=== PATIENT | female | born 1960 | race Caucasian/White ===

== ENCOUNTER 2017-08-29 11:35 | Inpatient (IN) | payer MEDICARE, OTHER ==
[~2017-08-29 11:35] MED LIST: ETOMIDATE 20 MG INJ
[2017-08-29] MEDS: ETOMIDATE 20 MG INJ IV (12:35)
[2017-08-29] MEDS: ROCURONIUM 50 MG INJ IV (12:36)
[2017-08-29] MEDS: PROPOFOL 100 ML IV ×3 (12:47→22:00)
[2017-08-29 12:51] LABS: ADD MAN DIFF? NO
[2017-08-29 12:53] LABS: AADO2 Arterial 378.8 mmHg (7.0-24.0); Allen Test ACCEPTAB; Arterial Base Excess -0.6 mmol/L (-3.0-3); Arterial Blood Gas Oxygen Sat 91.1 mmHG (95.0-98.0); Arterial COHb 0.3 % (0.0-3.0); Arterial Fraction of Oxyhgb 90.6 % (93.0-99.0); Arterial HCO3 25.3 mmol/L (22.0-26.0); Arterial MetHb 0.3 % (0.0-1.5); Arterial Total Hemglobin 10.4 g/dl (12.0-18.0); Arterial pCO2 46.9 mmhg (35-45); MODE VENT - AC; Site Right Radial
[2017-08-29 12:59] LABS: WHITE BLOOD COUNT 12.3 10^3/ul (4.8-10.8)
[2017-08-29 12:59] LABS: ABNORMAL IP MESSAGE 1; BASOPHIL # 0.1 10^3/ul (0.0-0.1); BASOPHILS % 0.5 % (0.0-2.0); EOSINOPHILS # 0.3 10^3/ul (0.0-0.5); EOSINOPHILS % 2.1 % (0.0-7.0); HEMATOCRIT 28.2 % (37.0-47.0); HEMOGLOBIN 9.1 g/dl (12.0-16.0); LYMPHOCYTES # 4.4 10^3/ul (0.8-2.9); LYMPHOCYTES % 35.6 % (15.0-51.0); MEAN CORPUSCULAR HEMOGLOBIN 31.5 pg (29.0-33.0); MEAN CORPUSCULAR HGB CONC 32.3 g/dl (32.0-37.0); MEAN CORPUSCULAR VOLUME 97.6 fl (82.0-101.0); MEAN PLATELET VOLUME 12.6 fl (7.4-10.4); MONOCYTE # 0.7 10^3/ul (0.3-0.9); MONOCYTES % 5.9 % (0.0-11.0); NEUTROPHIL # 6.8 10^3/ul (1.6-7.5); NEUTROPHILS % 55.4 % (39.0-77.0); RED BLOOD COUNT 2.89 10^6/ul (4.20-5.40); RED CELL DISTRIBUTION WIDTH 17.1 % (11.5-14.5)
[2017-08-29 13:01] LABS: POSITIVE DIFF @See below
[2017-08-29 13:15] LABS: PROTIME 13.3 Sec (11.9-14.9)
[2017-08-29 13:16] LABS: PARTIAL THROMBOPLASTIN TIME 32.6 Sec (25.0-35.0)
[2017-08-29 13:19] LABS: ALANINE AMINOTRANSFERASE 29 IU/L (13-69); ALBUMIN 4.2 g/dl (3.3-4.9); ALBUMIN/GLOBULIN RATIO 1.35; ALKALINE PHOSPHATASE 84 IU/L (42-121); ANION GAP 32 (8-16); ASPARTATE AMINO TRANSFERASE 41 IU/L (15-46); BLOOD UREA NITROGEN 79 mg/dl (7-20); CALCIUM 6.8 mg/dl (8.4-10.2); CARBON DIOXIDE 20 mmol/L (21-31); CHLORIDE 93 mmol/L (97-110); CREATININE 10.74 mg/dl (0.44-1.00); GLUCOSE 167 mg/dl (70-220); POTASSIUM 4.9 mmol/L (3.5-5.1); SODIUM 140 mmol/L (135-144); TOTAL PROTEIN 7.3 g/dl (6.1-8.1)
[2017-08-29 13:33] LABS: PLATELET COUNT 180 10^3/UL (140-415)
[2017-08-29 13:44] LABS: B-TYPE NATRIURETIC PEPTIDE 151000 PG/ML (0-125)
[2017-08-29] MEDS ORDERED: LORAZEPAM 2 MG INJ IV (15:30)
[2017-08-29] MEDS ORDERED: ONDANSETRON 4 MG INJ IV (15:30)
[2017-08-29] MEDS ORDERED: VANCOMYCIN IV PER PHARMACY XX (15:30)
[2017-08-29] MEDS: CEFEPIME 1GM/50 ML (PMX) 50 ML IVPB (16:20)
[2017-08-29] MEDS: VANCOMYCIN 1 GM in 250 ML IVPB (17:58)
[2017-08-29] MEDS: DOCUSATE SODIUM 100 MG CAP PO (21:00)
[2017-08-29] MEDS: FAMOTIDINE 20 MG INJ IV (21:59)
[2017-08-29 23:55] LABS: CREATINE KINASE 55 IU/L (23-200)
[2017-08-30 00:09] LABS: CK INDEX 2.8; CK-MB 1.54 ng/ml (0.0-2.4)
[2017-08-30 00:19] LABS: TROPONIN-I 0.304 ng/ml (0.00-0.12)
[2017-08-30 04:39] LABS: ADD MAN DIFF? NO
[2017-08-30 04:44] LABS: WHITE BLOOD COUNT 6.4 10^3/ul (4.8-10.8)
[2017-08-30 04:44] LABS: ABNORMAL IP MESSAGE 1; BASOPHILS % 0.5 % (0.0-2.0); EOSINOPHILS # 0.2 10^3/ul (0.0-0.5); EOSINOPHILS % 2.7 % (0.0-7.0); HEMATOCRIT 27.8 % (37.0-47.0); HEMOGLOBIN 9.4 g/dl (12.0-16.0); LYMPHOCYTES # 1.7 10^3/ul (0.8-2.9); LYMPHOCYTES % 26.8 % (15.0-51.0); MEAN CORPUSCULAR HEMOGLOBIN 30.8 pg (29.0-33.0); MEAN CORPUSCULAR HGB CONC 33.8 g/dl (32.0-37.0); MEAN CORPUSCULAR VOLUME 91.1 fl (82.0-101.0); MEAN PLATELET VOLUME 11.1 fl (7.4-10.4); MONOCYTE # 0.6 10^3/ul (0.3-0.9); MONOCYTES % 9.4 % (0.0-11.0); NEUTROPHIL # 3.8 10^3/ul (1.6-7.5); NEUTROPHILS % 60.1 % (39.0-77.0); PLATELET COUNT 99 10^3/UL (140-415); RED BLOOD COUNT 3.05 10^6/ul (4.20-5.40); RED CELL DISTRIBUTION WIDTH 16.9 % (11.5-14.5)
[2017-08-30 04:59] LABS: POSITIVE DIFF @See below
[2017-08-30] MEDS: PROPOFOL 100 ML IV ×4 (05:28→23:52)
[2017-08-30 05:32] LABS: CREATINE KINASE 59 IU/L (23-200)
[2017-08-30 05:35] LABS: ALANINE AMINOTRANSFERASE 34 IU/L (13-69); ALBUMIN 3.7 g/dl (3.3-4.9); ALKALINE PHOSPHATASE 80 IU/L (42-121); ASPARTATE AMINO TRANSFERASE 42 IU/L (15-46); BILIRUBIN,INDIRECT 0.1 mg/dl (0-1.1); BILIRUBIN,TOTAL 0.1 mg/dl (0.2-1.3); CHOL/HDL RATIO 4.7 RATIO; CHOLESTEROL 209 mg/dl (100-200); HDL CHOLESTEROL 44 mg/dl (35-98); LDL CHOLESTEROL,CALCULATED 122 mg/dl; TOTAL PROTEIN 6.7 g/dl (6.1-8.1); TRIGLYCERIDES 214 mg/dl (0-149)
[2017-08-30 05:36] LABS: ANION GAP 20 (8-16); BLOOD UREA NITROGEN 53 mg/dl (7-20); CALCIUM 8.3 mg/dl (8.4-10.2); CARBON DIOXIDE 28 mmol/L (21-31); CHLORIDE 94 mmol/L (97-110); CREATININE 7.84 mg/dl (0.44-1.00); GLUCOSE 81 mg/dl (70-220); MAGNESIUM 1.7 mg/dl (1.7-2.5); PHOSPHORUS 4.4 mg/dl (2.5-4.9); POTASSIUM 4.3 mmol/L (3.5-5.1); SODIUM 138 mmol/L (135-144)
[2017-08-30 05:46] LABS: CK INDEX 1.9; CK-MB 1.14 ng/ml (0.0-2.4)
[2017-08-30 06:01] LABS: TROPONIN-I 0.266 ng/ml (0.00-0.12)
[2017-08-30] MEDS: DOCUSATE SODIUM 100 MG CAP PO ×2 (09:00→20:21)
[2017-08-30] MEDS: FAMOTIDINE 20 MG INJ IV ×2 (10:23→20:21)
[2017-08-30] MEDS: CEFEPIME 1GM/50 ML (PMX) 50 ML IVPB (16:00)
[2017-08-31] MEDS: PROPOFOL 100 ML IV (04:32)
[2017-08-31 05:52] LABS: AADO2 Arterial 88.3 mmHg (7.0-24.0); Allen Test ACCEPTAB; Arterial Base Excess 3.4 mmol/L (-3.0-3); Arterial Blood Gas Oxygen Sat 98.8 mmHG (95.0-98.0); Arterial COHb 0.3 % (0.0-3.0); Arterial Fraction of Oxyhgb 98.4 % (93.0-99.0); Arterial HCO3 24.8 mmol/L (22.0-26.0); Arterial MetHb 0.1 % (0.0-1.5); Arterial Total Hemglobin 9.8 g/dl (12.0-18.0); Arterial pCO2 26.9 mmhg (35-45); MODE VENT - AC; Site Right Radial
[2017-08-31 05:53] LABS: ADD MAN DIFF? NO
[2017-08-31 06:36] LABS: MAGNESIUM 1.8 mg/dl (1.7-2.5)
[2017-08-31 06:37] LABS: ABNORMAL IP MESSAGE 1; BASOPHIL # 0.1 10^3/ul (0.0-0.1); BASOPHILS % 0.8 % (0.0-2.0); EOSINOPHILS # 0.1 10^3/ul (0.0-0.5); EOSINOPHILS % 1.8 % (0.0-7.0); HEMATOCRIT 32.5 % (37.0-47.0); HEMOGLOBIN 10.8 g/dl (12.0-16.0); LYMPHOCYTES % 26.8 % (15.0-51.0); MEAN CORPUSCULAR HEMOGLOBIN 30.6 pg (29.0-33.0); MEAN CORPUSCULAR HGB CONC 33.2 g/dl (32.0-37.0); MEAN CORPUSCULAR VOLUME 92.1 fl (82.0-101.0); MEAN PLATELET VOLUME 12.1 fl (7.4-10.4); MONOCYTE # 0.9 10^3/ul (0.3-0.9); MONOCYTES % 11.4 % (0.0-11.0); NEUTROPHIL # 4.5 10^3/ul (1.6-7.5); NEUTROPHILS % 58.9 % (39.0-77.0); PLATELET COUNT 99 10^3/UL (140-415); RED BLOOD COUNT 3.53 10^6/ul (4.20-5.40); RED CELL DISTRIBUTION WIDTH 16.9 % (11.5-14.5)
[2017-08-31 06:37] LABS: WHITE BLOOD COUNT 7.6 10^3/ul (4.8-10.8)
[2017-08-31 06:41] LABS: POSITIVE DIFF @See below
[2017-08-31 07:05] LABS: ANION GAP 26 (8-16); BLOOD UREA NITROGEN 43 mg/dl (7-20); CALCIUM 8.4 mg/dl (8.4-10.2); CARBON DIOXIDE 27 mmol/L (21-31); CHLORIDE 93 mmol/L (97-110); CREATININE 7.93 mg/dl (0.44-1.00); GLUCOSE 78 mg/dl (70-220); SODIUM 141 mmol/L (135-144)
[2017-08-31] MEDS: DOCUSATE SODIUM 100 MG CAP PO ×2 (08:07→20:12)
[2017-08-31] MEDS: FAMOTIDINE 20 MG INJ IV ×2 (09:19→20:13)
[2017-08-31 09:42] LABS: AADO2 Arterial 49.9 mmHg (7.0-24.0); Allen Test ACCEPTAB; Arterial Base Excess 3.5 mmol/L (-3.0-3); Arterial Blood Gas Oxygen Sat 98.9 mmHG (95.0-98.0); Arterial COHb 0.3 % (0.0-3.0); Arterial Fraction of Oxyhgb 98.3 % (93.0-99.0); Arterial HCO3 27.5 mmol/L (22.0-26.0); Arterial MetHb 0.3 % (0.0-1.5); Arterial pCO2 39.7 mmhg (35-45); Blood Gas PS 8; MODE VENT - CPAP; Site Right Radial
[2017-08-31] MEDS: LOSARTAN 50 MG TAB PO (11:22)
[2017-08-31] MEDS: NIFEdipine (XL) 60 MG TAB PO ×2 (13:51→20:13)
[2017-09-01 05:39] LABS: ADD MAN DIFF? NO
[2017-09-01 05:52] LABS: WHITE BLOOD COUNT 6.6 10^3/ul (4.8-10.8)
[2017-09-01 05:52] LABS: ABNORMAL IP MESSAGE 1; BASOPHIL # 0.1 10^3/ul (0.0-0.1); BASOPHILS % 0.8 % (0.0-2.0); EOSINOPHILS # 0.4 10^3/ul (0.0-0.5); EOSINOPHILS % 5.8 % (0.0-7.0); HEMATOCRIT 33.9 % (37.0-47.0); LYMPHOCYTES # 2.3 10^3/ul (0.8-2.9); LYMPHOCYTES % 34.9 % (15.0-51.0); MEAN CORPUSCULAR HEMOGLOBIN 30.1 pg (29.0-33.0); MEAN CORPUSCULAR HGB CONC 32.4 g/dl (32.0-37.0); MEAN CORPUSCULAR VOLUME 92.9 fl (82.0-101.0); MONOCYTE # 0.9 10^3/ul (0.3-0.9); MONOCYTES % 13.4 % (0.0-11.0); NEUTROPHILS % 44.8 % (39.0-77.0); PLATELET COUNT 63 10^3/UL (140-415); RED BLOOD COUNT 3.65 10^6/ul (4.20-5.40); RED CELL DISTRIBUTION WIDTH 16.5 % (11.5-14.5)
[2017-09-01 06:00] LABS: ANION GAP 28 (8-16); BLOOD UREA NITROGEN 70 mg/dl (7-20); CALCIUM 7.8 mg/dl (8.4-10.2); CARBON DIOXIDE 27 mmol/L (21-31); CHLORIDE 92 mmol/L (97-110); CREATININE 11.22 mg/dl (0.44-1.00); GLUCOSE 82 mg/dl (70-220); POTASSIUM 4.5 mmol/L (3.5-5.1); SODIUM 142 mmol/L (135-144)
[2017-09-01 06:19] LABS: POSITIVE DIFF @See below
[2017-09-01] MEDS: DOCUSATE SODIUM 100 MG CAP PO ×2 (08:38→21:01)
[2017-09-01] MEDS: FAMOTIDINE 20 MG INJ IV ×2 (08:38→21:01)
[2017-09-01] MEDS: HYDROmorphONE 0.5 MG/0.5 ML SYG IV (08:38)
[2017-09-01] MEDS ORDERED: NALOXONE (0.4 MG/ML) INJ (08:44)
[2017-09-01] MEDS ORDERED: ATROPINE 1 MG/10 ML SYRINGE (08:46)
[2017-09-01] MEDS: NIFEdipine (XL) 60 MG TAB PO ×2 (09:00→21:01)
[2017-09-01] MEDS: LOSARTAN 50 MG TAB PO (12:27)
[2017-09-02] MEDS: GUAIFENESIN/DM 5ML CUP PO ×2 (01:15→20:08)
[2017-09-02 08:06] LABS: ADD MAN DIFF? NO
[2017-09-02 08:21] LABS: WHITE BLOOD COUNT 9.2 10^3/ul (4.8-10.8)
[2017-09-02 08:21] LABS: ABNORMAL IP MESSAGE 1; BASOPHIL # 0.1 10^3/ul (0.0-0.1); BASOPHILS % 0.8 % (0.0-2.0); EOSINOPHILS # 0.4 10^3/ul (0.0-0.5); EOSINOPHILS % 3.8 % (0.0-7.0); HEMATOCRIT 35.2 % (37.0-47.0); HEMOGLOBIN 11.6 g/dl (12.0-16.0); LYMPHOCYTES # 2.9 10^3/ul (0.8-2.9); LYMPHOCYTES % 31.6 % (15.0-51.0); MEAN CORPUSCULAR HEMOGLOBIN 30.5 pg (29.0-33.0); MEAN CORPUSCULAR VOLUME 92.6 fl (82.0-101.0); MONOCYTE # 1.1 10^3/ul (0.3-0.9); MONOCYTES % 11.5 % (0.0-11.0); NEUTROPHIL # 4.8 10^3/ul (1.6-7.5); NEUTROPHILS % 51.9 % (39.0-77.0); PLATELET COUNT 69 10^3/UL (140-415); RED CELL DISTRIBUTION WIDTH 16.3 % (11.5-14.5)
[2017-09-02 08:26] LABS: POSITIVE DIFF @See below
[2017-09-02] MEDS: FAMOTIDINE 20 MG INJ IV ×2 (09:25→20:08)
[2017-09-02] MEDS: DOCUSATE SODIUM 100 MG CAP PO ×2 (09:26→20:08)
[2017-09-02] MEDS: NIFEdipine (XL) 60 MG TAB PO ×2 (09:26→20:08)
[2017-09-02] MEDS: LOSARTAN 50 MG TAB PO (09:27)
[2017-09-03 08:53] LABS: ABNORMAL IP MESSAGE 1; BASOPHILS % 0.5 % (0.0-2.0); EOSINOPHILS # 0.3 10^3/ul (0.0-0.5); HEMATOCRIT 30.6 % (37.0-47.0); HEMOGLOBIN 10.2 g/dl (12.0-16.0); LYMPHOCYTES # 2.4 10^3/ul (0.8-2.9); LYMPHOCYTES % 32.1 % (15.0-51.0); MEAN CORPUSCULAR HEMOGLOBIN 30.6 pg (29.0-33.0); MEAN CORPUSCULAR HGB CONC 33.3 g/dl (32.0-37.0); MEAN CORPUSCULAR VOLUME 91.9 fl (82.0-101.0); MEAN PLATELET VOLUME 11.9 fl (7.4-10.4); MONOCYTE # 0.8 10^3/ul (0.3-0.9); MONOCYTES % 10.5 % (0.0-11.0); NEUTROPHILS % 52.6 % (39.0-77.0); PLATELET COUNT 82 10^3/UL (140-415); RED BLOOD COUNT 3.33 10^6/ul (4.20-5.40); RED CELL DISTRIBUTION WIDTH 15.9 % (11.5-14.5)
[2017-09-03 08:53] LABS: WHITE BLOOD COUNT 7.5 10^3/ul (4.8-10.8)
[2017-09-03 08:54] LABS: ADD MAN DIFF? NO
[2017-09-03 08:58] LABS: POSITIVE DIFF @See below
[2017-09-03 09:36] LABS: ALANINE AMINOTRANSFERASE 32 IU/L (13-69); ALBUMIN 3.8 g/dl (3.3-4.9); ALBUMIN/GLOBULIN RATIO 1.08; ALKALINE PHOSPHATASE 72 IU/L (42-121); ANION GAP 25 (8-16); ASPARTATE AMINO TRANSFERASE 28 IU/L (15-46); BLOOD UREA NITROGEN 87 mg/dl (7-20); CALCIUM 7.1 mg/dl (8.4-10.2); CARBON DIOXIDE 24 mmol/L (21-31); CHLORIDE 89 mmol/L (97-110); CREATININE 11.85 mg/dl (0.44-1.00); GLUCOSE 71 mg/dl (70-220); POTASSIUM 3.9 mmol/L (3.5-5.1); SODIUM 134 mmol/L (135-144); TOTAL PROTEIN 7.3 g/dl (6.1-8.1)
[2017-09-03] MEDS: DOCUSATE SODIUM 100 MG CAP PO (11:46)
[2017-09-03] MEDS: FAMOTIDINE 20 MG INJ IV (11:46)
[2017-09-03] MEDS: LOSARTAN 50 MG TAB PO (11:47)
[2017-09-03] MEDS: NIFEdipine (XL) 60 MG TAB PO (11:47)
== END 2017-09-03 16:08 | disposition home or self-care (01) | DRG 871 ==
LOC: E/R 11:35 → MS4 09-01 19:09 → ICU 17:54
PROC: 5A1945Z Respiratory Ventilation, 24-96 Consecutive Hours (ICD-10-PCS; principal; 2017-08-29)
PROC: 5A1D70Z Performance of Urinary Filtration, Intermittent, Less than 6 Hours Per Day (ICD-10-PCS; 2017-08-29)
PROC: 0BH17EZ Insertion of Endotracheal Airway into Trachea, Via Natural or Artificial Opening (ICD-10-PCS; 2017-08-29)
DX: A41.9 Sepsis, unspecified organism (principal); J96.01 Acute respiratory failure with hypoxia; I13.2 Hypertensive heart and chronic kidney disease with heart failure and with stage 5 chronic kidney disease, or end stage renal disease; G92 Toxic encephalopathy; J18.9 Pneumonia, unspecified organism; J81.1 Chronic pulmonary edema; N18.6 End stage renal disease; D69.6 Thrombocytopenia, unspecified; I50.9 Heart failure, unspecified; E83.51 Hypocalcemia; E87.70 Fluid overload, unspecified; Y95 Nosocomial condition; D63.1 Anemia in chronic kidney disease; E83.9 Disorder of mineral metabolism, unspecified; T40.605A Adverse effect of unspecified narcotics, initial encounter; R65.20 Severe sepsis without septic shock; Z99.2 Dependence on renal dialysis; Z86.74 Personal history of sudden cardiac arrest
CPT/HCPCS: 31500; 36415; 36600; 71045; 80048; 80053; 80061; 80076; 82550; 82553; 82803; 83735; 83880; 84100; 84443; 84484; 85025; 85610; 85730; 87040; 87070; 87081; 89220; 90935; 93005; 93306; 94002; 94003; 94660; 94770; 96374; 96375; 99291-25